=== PATIENT | female | born 1960 | race Caucasian/White ===

== ENCOUNTER 2017-09-06 11:18 | Emergency (ER) | payer SELFPAY ==
[2017-09-06 11:20] VITALS: BP 146/72; PULSE 97; RESP 24; TEMP 98.5; O2SAT 93
--- NOTE | 2017-09-06 11:53 | PD ---
HPI Chief Complaint: Cold / Flu Symptoms Time Seen by Provider: 11:40 Travel History International Travel<30 days: No Contact w/Intl Traveler<30days: No Traveled to known affect area: No History of Present Illness HPI 57-year-old female presents to emergency department for evaluation of cough and chest congestion worsening over last 2 days. Patient has felt febrile and chilled and has a mild headache. Denies any chest pain except for with cough. Denies any significant shortness of breath, but does feel short of breath during coughing spells. Denies any nausea or vomiting. Denies any other symptoms at this time. PFSH Social History Alcohol Use: No Tobacco Use: No (QUIT 8 WEEKS AGO) Substance Use: No Allergies-Medications (Allergen,Severity, Reaction): Coded Allergies: sulfamethoxazole (Verified Allergy, Unknown, 09/06/17) trimethoprim (Verified Allergy, Unknown, 09/06/17) Reported Meds & Prescriptions Reported Meds & Active Scripts Active Zithromax Z-Harmeet (Azithromycin) 250 Mg Dspk 250 Mg PO DIRECTED 500 MG (2 tabs) day 1, then 1 tab days 2-5. Proair Hfa 8.5 GM Inh (Albuterol Sulfate) 90 Mcg/Act Aer 2 Puff INH Q4HR PRN 108 mcg/actuation Prednisone 50 Mg Tab 50 Mg PO DAILY 5 Days Review of Systems Except as stated in HPI: all other systems reviewed are Neg Physical Exam Narrative GENERAL: Well-nourished renal patient, in no acute distress. SKIN: Focused skin assessment warm/dry. HEAD: Atraumatic. Normocephalic. EYES: Pupils equal and round. No scleral icterus. No injection or drainage. ENT: No nasal bleeding or discharge. Pharynx erythematous without exudate Mucous membranes pink and moist. NECK: Trachea midline. No JVD. CARDIOVASCULAR: Elevated rate and rhythm. No murmur appreciated. RESPIRATORY: No accessory muscle use. Coarse with inspiratory and expiratory wheeze to auscultation. Breath sounds equal bilaterally. GASTROINTESTINAL: Abdomen soft, non-tender, nondistended. Hepatic and splenic margins not palpable. MUSCULOSKELETAL: No obvious deformities. No clubbing. No cyanosis. No edema. NEUROLOGICAL: Awake and alert. No obvious cranial nerve deficits. Motor grossly within normal limits. Normal speech. PSYCHIATRIC: Appropriate mood and affect; insight and judgment normal. Data Data Last Documented VS Vital Signs Date Time Temp Pulse Resp B/P (MAP) Pulse Ox O2 Delivery O2 Flow Rate FiO2 09/06/17 12:58 09/06/17 11:20 98.5 97 24 93 Room Air Orders Orders Chest, Single Ap (09/06/17 ) Albuterol-Ipratropium Neb (Duoneb Neb) (09/06/17 12:00) Dexamethasone Inj (Decadron Inj) (09/06/17 12:00) Ed Discharge Order (09/06/17 12:30) MDM Medical Decision Making Medical Screen Exam Complete: Yes Emergency Medical Condition: Yes Medical Record Reviewed: Yes Differential Diagnosis Influenza versus bronchitis versus pneumonia versus other URI Narrative Course 57-year-old female presents to the emergency department for evaluation of cough and chest congestion. Patient appears without distress. Her vital signs are stable. Chest x-ray is negative, however patient does have history of tobacco cigarette smoking and likely some degree of COPD. I will start her on azithromycin encouraged follow-up with her primary care provider. She agrees to return immediately with any acute worsening symptoms. Diagnosis Primary Impression: Upper respiratory infection Qualified Codes: J06.9 - Acute upper respiratory infection, unspecified Referrals: Primary Care Physician Patient Instructions: General Instructions, Upper Respiratory Infection (ED) Additional Instructions: Humidified air may help to alleviate symptoms Follow-up with primary care provider Tylenol or ibuprofen as directed with act as needed for pain and/or fever Return immediately with any acute worsening symptoms Med/Other Pt SpecificInfo: Prescription(s) given Scripts Azithromycin (Zithromax Z-Harmeet) 250 Mg Dspk 250 MG PO DIRECTED for Infection, #1 DSPK 0 Refills 500 MG (2 tabs) day 1, then 1 tab days 2-5. Prov: Yancy Madrigal 09/06/17 Albuterol 8.5 GM Inh (Proair Hfa 8.5 GM Inh) 90 Mcg/Act Aer 2 PUFF INH Q4HR Y for SHORTNESS OF BREATH, #1 INHALER 0 Refills 108 mcg/actuation Prov: Yancy Madrigal 09/06/17 Prednisone (Prednisone) 50 Mg Tab 50 MG PO DAILY for 5 Days, #5 TAB 0 Refills Prov: Yancy Madrigal 09/06/17 Disposition: 01 DISCHARGE HOME Condition: Stable Yancy Madrigal Sep 06, 2017 11:53
[2017-09-06] MEDS ORDERED: RESP: ALBUTEROL 2.5 MG/IPRATROPIUM 0.5 MG NEB (SCH) INH (12:00)
[2017-09-06] MEDS ORDERED: DEXAMETHASONE SOD PHOS 4 MG/ML VIAL IM ONE (12:00)
--- NOTE | 2017-09-06 12:18 | RADRPT ---
EXAM DATE/TIME: 09/06/2017 12:01 [facility] COMPARISON: No previous studies available for comparison. INDICATIONS : Shortness of breath, coughing, congestion. MEDICAL HISTORY : Quit smoking one month ago. SURGICAL HISTORY : 1st rib removed on the left side. ENCOUNTER: Initial ACUITY: 3 days PAIN SCORE: 0/10 LOCATION: Bilateral chest FINDINGS: A single view of the chest demonstrates the lungs to be symmetrically aerated without evidence of mas s, infiltrate or effusion. The cardiomediastinal contours are unremarkable. Osseous structures are intact. CONCLUSION: 1. No active disease. Amadeo Youssef MD on September 06, 2017 at 12:16 Board Certified Radiologist. This report was verified electronically.
[2017-09-06] MEDS ORDERED: PRED50 PO (12:38)
[2017-09-06] MEDS ORDERED: ALBUAER3 INH (12:38)
[2017-09-06] MEDS ORDERED: ZITHTAB PO (12:39)
== END 2017-09-06 12:58 | disposition home or self-care (01) ==
LOC: NEPD 11:18
DX: J06.9 Acute upper respiratory infection, unspecified (principal); R51 Headache
CPT/HCPCS: 71010; 99285